=== PATIENT | male | born 1960 | race Caucasian/White ===

== ENCOUNTER 2020-08-10 05:14 | Emergency (ER) | payer MEDICAID ==
[~2020-08-10] VITALS: Ht 172.7 cm; Wt 72.7 kg
[~2020-08-10 05:14] MED LIST: ACET12.55 PO
[2020-08-10] MEDS ORDERED: ondansetron 4mg rapidly disintigrating tab PO ONE (05:45)
[2020-08-10] MEDS ORDERED: ibuprofen tablet 400 MG TABLET PO ONE (05:45)
[2020-08-10] MEDS ORDERED: TETanus/Pertussis (Acell)/Diphther VAC/PF (Tdap-Adult) 0.5ml syringe IMVAC ONE (05:45)
[2020-08-10] MEDS ORDERED: bacitracin 15gm ointment TP ONE (05:45)
[2020-08-10] MEDS ORDERED: sulfamethoxazole/trimethoprim DS (800/160mg) tablet PO ONE (05:45)
[2020-08-10] MEDS ORDERED: acetaminophen 325mg tablet PO ONE (05:45)
[2020-08-10] MEDS ORDERED: HYDR-3965 PO (05:47)
[2020-08-10] MEDS ORDERED: SULF1TAB49 PO (05:47)
[2020-08-10] MEDS ORDERED: ONDA4TAB6 PO (05:47)
--- NOTE | 2020-08-10 06:15 | NUR ---
Nurse attempted to clean/irrigate wound.
[2020-08-10] MEDS ORDERED: LIDOcaine 1% W/epiNEPHrine 1:100,000 20ml vial ONE (07:00)
[2020-08-10 07:40] VITALS: BP 114/70
== END 2020-08-10 07:43 | disposition home or self-care (01) ==
LOC: ER 05:15
DX: S60.451A Superficial foreign body of left index finger, initial encounter (principal); Z20.3 Contact with and (suspected) exposure to rabies; Z79.2 Long term (current) use of antibiotics; Z79.899 Other long term (current) drug therapy; X58.XXXA Exposure to other specified factors, initial encounter; Y93.89 Activity, other specified; Y92.89 Other specified places as the place of occurrence of the external cause; Y99.8 Other external cause status
CPT/HCPCS: 73140; 90471; 90715; 99284

== ENCOUNTER 2020-10-14 04:23 | Emergency (ER) | payer MEDICAID ==
[~2020-10-14] VITALS: Ht 172.7 cm; Wt 68.2 kg
[~2020-10-14 04:23] MED LIST changes: +ONDA4TAB6 PO
[2020-10-14] MEDS ORDERED: ondansetron/PF 4mg/2ml inj IV STA (04:28)
[2020-10-14] MEDS ORDERED: ketorolac trometh. 30mg/ml inj. IV STA (04:28)
[2020-10-14] MEDS ORDERED: normal saline 1000ml 1,000 ML IVB ONE (04:30)
[2020-10-14 05:20] LABS: BASOPHILS # (AUTO) 0.1 X10'3 (0-0.2); BASOPHILS % (AUTO) 1.2 % (0-1); EOSINOPHILS # (AUTO) 0.1 X10'3 (0-0.9); EOSINOPHILS % (AUTO) 3.2 % (0-6); HEMATOCRIT 42.2 % (42.0-52.0); HEMOGLOBIN 14.3 g/dl (14.0-17.9); LYMPHOCYTES # (AUTO) 0.8 X10'3 (1.1-4.8); LYMPHOCYTES % (AUTO) 18.9 % (21-51); MEAN CORPUSCULAR HEMOGLOBIN 30.9 PG (27.0-31.0); MEAN CORPUSCULAR HGB CONC 33.8 g/dL (33.0-36.5); MEAN CORPUSCULAR VOLUME 91.3 FL (78-98); MEAN PLATELET VOLUME 7.8 FL (7.4-10.4); MONOCYTES # (AUTO) 0.5 X10'3 (0-0.9); MONOCYTES % (AUTO) 11.9 % (2-12); NEUTROPHILS # (AUTO) 2.9 X10'3 (1.8-7.7); NEUTROPHILS % (AUTO) 64.8 % (42-75); PLATELET COUNT 234 X10'3 (140-440); RED BLOOD COUNT 4.62 X10'6 (4.70-6.10); RED CELL DISTRIBUTION WIDTH 13.5 % (11.5-14.5); WHITE BLOOD COUNT 4.5 X10'3 (4.5-11.0)
--- NOTE | 2020-10-14 05:39 | NUR ---
Pt states "it's hard for me to pee" and refuses to try. Pt. also adamantly refuses to be catheterized
[2020-10-14 05:50] LABS: ALANINE AMINOTRANSFERASE 156 U/L (12-78); ALBUMIN 3.1 G/DL (3.4-5.0); ALBUMIN/GLOBULIN RATIO 0.9 (1.1-1.5); ALKALINE PHOSPHATASE 44 IU/L (46-116); ANION GAP 9 (8-16); ASPARTATE AMINO TRANSFERASE 62 U/L (10-37); BILIRUBIN,TOTAL 0.4 MG/DL (0.1-1.0); BLOOD UREA NITROGEN 10 MG/DL (7-18); BUN/CREATININE RATIO 8.1 (5.4-32.0); CALCIUM 8.1 MG/DL (8.5-10.1); CHLORIDE 105 MMOL/L (99-107); CREATININE 1.23 MG/DL (0.60-1.10); GLUCOSE 84 MG/DL (70-104); LIPASE 102 U/L (73-393); POTASSIUM 3.8 MMOL/L (3.5-5.1); SODIUM 142 MMOL/L (135-145); TOTAL CARBON DIOXIDE 28.2 MMOL/L (24-32); TOTAL PROTEIN 6.5 G/DL (6.4-8.2); eGFR 60 ML/MIN
[2020-10-14] MEDS ORDERED: iohexol 300mg/ml 100ml inj. ONE (05:50)
[2020-10-14 07:19] VITALS: BP 123/85
--- NOTE | 2020-10-14 08:18 | NUR ---
pt seen walking in hallway toward exit door. asked if he needed help and stated hes leaving. I was able to pull his IV before he left. Provider and charge aware. Addendum: 10/14/20 at 0819 by [email or web address] note by bulmaro
--- NOTE | 2020-10-14 09:46 | NUR ---
PT CALLED AT [phone] NEAL TO NOTIFY HIM OF CT RESULTS AND TO F/U WITH A UROLIGIST FOR CALCIFICATION IN BLADDER PT ELOPED BEFORE RESULTS. PT STATES VERBAL UNDERSTANDING AND WILL MAKE AN APT
== END 2020-10-14 08:19 | disposition left against medical advice (07) ==
LOC: ER 04:23
DX: N20.0 Calculus of kidney (principal); R10.84 Generalized abdominal pain; N32.89 Other specified disorders of bladder; N28.9 Disorder of kidney and ureter, unspecified; Z79.899 Other long term (current) drug therapy
CPT/HCPCS: 36415; 74177; 80053; 83690; 85025; 96361; 96374; 96375; 99285; J1885; J2405; J7030; Q9967

== ENCOUNTER 2021-09-12 20:57 | Emergency (ER) | payer MEDICAID ==
[~2021-09-12] VITALS: Ht 172.7 cm; Wt 75.1 kg
[~2021-09-12 20:57] MED LIST changes: -ACET12.55 PO; +NO HOME MEDS; -ONDA4TAB6 PO
[2021-09-12 23:34] VITALS: BP 112/70
== END 2021-09-12 23:37 | disposition home or self-care (01) ==
LOC: ER 20:58
DX: K40.90 Unilateral inguinal hernia, without obstruction or gangrene, not specified as recurrent (principal); F15.90 Other stimulant use, unspecified, uncomplicated; Z79.899 Other long term (current) drug therapy
CPT/HCPCS: 99284

== ENCOUNTER 2022-02-22 20:02 | Emergency (ER) | payer MEDICAID ==
[~2022-02-22] VITALS: Ht 172.7 cm; Wt 77.3 kg
[2022-02-22 20:28] VITALS: BP 126/73
== END 2022-02-22 22:17 | disposition left against medical advice (07) ==
LOC: ER 20:02
DX: R10.9 Unspecified abdominal pain (principal); Z53.21 Procedure and treatment not carried out due to patient leaving prior to being seen by health care provider

== ENCOUNTER 2023-06-13 10:30 | Emergency (ER) | payer MEDICAID ==
[~2023-06-13] VITALS: Ht 175.3 cm; Wt 65.9 kg
[2023-06-13 10:53] VITALS: BP 122/70; PULSE 80; RESP 16; TEMP 97.8; O2SAT 97
== END 2023-06-13 10:55 | disposition home or self-care (01) ==
LOC: ER 10:31
DX: R07.81 Pleurodynia (principal); F15.90 Other stimulant use, unspecified, uncomplicated; Z79.899 Other long term (current) drug therapy
CPT/HCPCS: 99283